=== PATIENT | female | born 1990 | race Caucasian/White ===

== ENCOUNTER 2024-05-17 11:47 | Emergency (ER) | payer SELFPAY | END 2024-05-17 15:18 | disposition home or self-care (01) | LOC: ERS 11:47 | DX: M25.531 Pain in right wrist (principal) ==

== ENCOUNTER 2024-05-26 18:14 | Emergency (ER) | payer SELFPAY | END 2024-05-26 21:20 | disposition home or self-care (01) | LOC: ERS 18:14 | DX: B80 Enterobiasis (principal) | CPT/HCPCS: 87177; 99282 ==